=== PATIENT | male | born 1970 | race Caucasian/White ===

== ENCOUNTER 2022-11-14 11:56 | Emergency (ER) | payer OTHER, SELFPAY ==
--- NOTE | ~2022-11-14 | XR_ITS ---
XR shoulder LT min 2V 11/14/2022 13:54 Indication: Left shoulder pain. Limited range of motion. Procedure: 5 views left shoulder Comparison: No prior studies for comparison. Findings: No acute fracture, subluxation or dislocation. No significant soft tissue abnormality. Surr ounding osseous structures are unremarkable. No foreign bodies. Impression: 1: No acute fracture. Reviewed, dictated and finalized at location A. [facility] Impression: 1: No acute fracture.
[2022-11-14 12:15] VITALS: BP 154/92; PULSE 93; RESP 16; TEMP 37.3; O2SAT 98
[2022-11-14] MEDS: KETOROLAC (*BKC) 60 MG/2 ML VIAL IM (15:49)
[2022-11-14] MEDS: Please add drug allergy info to patient profile. 1 EACH XX (15:49)
--- NOTE | 2022-11-14 15:58 | ED.EXTPRO ---
HPI - Extremity Problem General Chief complaint: Extremity Problem,Nontraumatic Stated complaint: left shoulder limited ROM, painful, denies injury Time Seen by Provider: 11/14/22 15:05 History of Present Illness HPI Narrative: Patient is a 52-year-old male who presents to the ER with left shoulder pain. Aching. Worse with trying to rotate and abduct. Began a couple days ago. Has been leaning on it while typing at work and noticed the initial discomfort over the anterior aspect. Whenever he tries to perform range of motion the anterior aspect of the shoulder hurts. No fevers or chills or sweats. Only feels improved with hanging at his side. Denies trauma. Has had physical therapy on his affected shoulder multiple times. Denies fevers or chills or sweats. No recent dental or skin infections. No IV drug use. Denies redness or warmth. Related Data Allergies Allergy/AdvReac Type Severity Reaction Status Date / Time No Known Allergies Allergy Verified 11/14/22 15:48 Review of Systems Review of Systems: All systems reviewed & are unremarkable except as noted in HPI and below Constitutional: Constitutional: Denies chills, Denies fatigue and Denies fever(s) Cardiovascular: Cardiovascular: Denies chest pain and Denies radiating jaw, neck or arm pain Respiratory: Respiratory: Denies cough and Denies dyspnea Musculoskeletal: Musculoskeletal: Denies back pain, Denies myalgias, Reports arthralgias, Denies joint swelling and Denies muscle cramps PMFSH Past Medical History Medical History (Updated 11/14/22 @ 16:32 by Catrachito Cruz MD) Essential (primary) hypertension Surgical History Surgical History (Updated 11/14/22 @ 16:32 by Catrachito Cruz MD) No pertinent past surgical history Social History Social History Smoking status: Never smoker Alcohol intake: never Exam Narrative: GENERAL: Well-appearing, well-nourished, and in no acute distress. HEAD: Normocephalic, atraumatic. ENT: Mucous membranes moist. CHEST: Clear to auscultation. No respiratory distress. HEART: Regular rate and rhythm. Normal peripheral pulses. EXTREMITIES: Focused exam of the left shoulder reveals tenderness over the AC process as well as anterior joint line. No posterior shoulder discomfort. No effusion or redness. Has increased pain with active and passive range of motion of the shoulder with iexternal rotation and active abduction. Passive abduction gets patient to 90 degrees laterally. Neurovascular intact. Patient also has pain with active flexion extension at the elbow over the most proximal part of the biceps near the shoulder. SKIN: Warm, dry, no rash. NEURO: Alert and oriented x3. PSYCH: Normal mood and affect. Course Course Emergency Course: Denies infectious symptoms. X-ray negative. Recommend patient take scheduled anti-inflammatories and wear a sling. Recommend follow-up with orthopedic surgeon. Discussed that he develop fever he should return to the ER. Patient verbalized understanding. Vital Signs Vital signs: Vital Signs Temperature 99.1 F 11/14/22 12:15 Pulse Rate 93 11/14/22 12:15 Respiratory Rate 16 11/14/22 12:15 Blood Pressure 154/92 H 11/14/22 12:15 Pulse Oximetry 98 11/14/22 12:15 Oxygen Delivery Room Air 11/14/22 12:15 Temperature 99.1 F 11/14/22 12:15 Pulse Rate 93 11/14/22 12:15 Respiratory Rate 16 11/14/22 12:15 Blood Pressure 154/92 H 11/14/22 12:15 Pulse Oximetry 98 11/14/22 12:15 Oxygen Delivery Room Air 11/14/22 12:15 Critical Care Time Critical Care Time Critical Care Time: Yes Total Critical Care Time: 35 Discharge Plan Discharge Clinical Impression: Acute shoulder pain Patient Disposition: Home, Self-Care Condition: Stable Instructions: Shoulder Pain (ED) Additional Instructions: Follow-up with orthopedic surgery for further evaluation and management. Return the ER if you develop fever over 100.4 ?F, you have
== END 2022-11-15 00:12 | disposition home or self-care (01) ==
PROVIDERS: Emergency Provider Emergency Medicine
DX: M25.512 Pain in left shoulder (principal); I10 Essential (primary) hypertension
CPT/HCPCS: 73030; 96372; 99283; A4565; J1885